=== PATIENT | male | born 1980 | race Caucasian/White ===

== ENCOUNTER 2017-07-09 10:55 | Outpatient (CLI) | payer BC ==
[2017-07-09 11:53] LABS: Mean Corpuscular HGB CONC 34.1 g/dL (32.0-36.0); Mean Platelet Volume 6.3 fL (7.4-10.4); Platelet Count 260 thou/uL (130-400); RBC Distribution Width 12.1 % (11.5-14.5); Red Blood Cell (RBC) Count 4.53 mill/uL (4.70-6.10); White Blood Cell (WBC) Count 5.7 thou/uL (4.8-10.8)
[2017-07-09 12:16] LABS: Anion Gap 11 mmol/L (10-20); BUN (Urea Nitrogen) 16 mg/dL (8.9-20.6); Calc. Creatinine Clearance 0 mL/min (70-130); Calcium 9.3 mg/dL (7.8-10.44); Carbon Dioxide 26 mmol/L (22-29); Estimated GFR-MDRD 84; Glucose 93 mg/dL (70-105); Potassium 4.2 mmol/L (3.5-5.1)
[2017-07-09 12:25] LABS: Chloride 104 mmol/L (98-107); Sodium 137 mmol/L (136-145)
== END 2017-07-09 10:56 | disposition home or self-care (01) ==
LOC: LABBT 10:55
PROVIDERS: ATTEND Orthopaedic Surgery Hand Surgery
DX: Z01.812 Encounter for preprocedural laboratory examination (principal); G56.22 Lesion of ulnar nerve, left upper limb
CPT/HCPCS: 80048; 85027

== ENCOUNTER 2017-07-10 05:50 | Day surgery (SDC) | payer BC ==
[2017-07-09 11:16] VITALS: BMI 38.9
[2017-07-10] MEDS ORDERED: CEFAZOLIN/Water 2 GM/20 ML SYRINGE ONE (06:13)
[2017-07-10] MEDS ORDERED: HYDROmorphone 0.5 MG/0.5 ML SYRINGE ONE (06:18)
[2017-07-10] MEDS ORDERED: Fentanyl 100 MCG/2 ML VIAL ONE ×2 (06:18→10:18)
[2017-07-10] MEDS ORDERED: Bacitracin Zinc Ointment 30 gm TUBE ONE (06:44)
[2017-07-10] MEDS ORDERED: Betamet Acet/Betamet Na Ph 30 MG/5 ML VIAL ONE (06:44)
[2017-07-10] MEDS ORDERED: Bupivacaine PF 0.5% 30 ML VIAL ONE (06:44)
[2017-07-10] MEDS ORDERED: Ketorolac Tromethamine 30 MG/ML VIAL ONE ×2 (10:26→16:54)
[2017-07-10] MEDS ORDERED: Promethazine HCl 25 MG/ML VIAL IM/IV PRN (11:01)
[2017-07-10] MEDS ORDERED: Non-Formulary Medication 1 EACH PO PRN (11:01)
[2017-07-10] MEDS ORDERED: Ondansetron HCl/PF 4 MG/2 ML Vial IVP PRN (11:01)
[2017-07-10] MEDS ORDERED: Dexamethasone 20 MG/5 ML VIAL ONE (16:54)
[2017-07-10] MEDS ORDERED: Lidocaine 1% PF 5 ML VIAL ONE (16:54)
[2017-07-10] MEDS ORDERED: ePHEDrine/0.9% NaCl/PF SYRINGE 50 mg/10 ml ONE ×2 (16:54)
[2017-07-10] MEDS ORDERED: Ondansetron HCl/PF 4 MG/2 ML Vial ONE (16:54)
[2017-07-10] MEDS ORDERED: Succinylcholine Chloride 20 MG/ML 10 ml SYRINGE FS ONE (16:54)
[2017-07-10] MEDS ORDERED: PROPOFOL 200 MG/20 ML VIAL ONE (16:54)
--- NOTE | 2017-07-14 11:41 | OP ---
DATE OF PROCEDURE: 07/10/2017 SURGEON: Luis Marsh M.D. ANESTHESIA: LMA technique, [place] Anesthesia, augmented by 30 mL 0.5% Marcaine block felicia-incision al. PROCEDURES PERFORMED: 1. Ulnar nerve neuroplasty. 2. Submuscular ulnar nerve transposition at the elbow. 3. Long arm splint application. 4. Celestone injection, perineural, intraoperative BLOOD LOSS: 10 Ml. TOURNIQUET TIME: 100 minutes. FINDINGS: 1. Very tight compression of the ulnar nerve in place flexor carpi. 2. Standard cubital tunnel. 3. Proximal to the ulnar nerve 2 cm proximal to the edge of the cubital tunnel. 4. Intermuscular parallel and cross over the nerve 10 cm proximal to the medial epicondyle. PROCEDURES PERFORMED: 1. Ulnar nerve neuroplasty under magnification, elbow, forearm, distal arm. 2. Cubital tunnel release. 3. Ulnar nerve submuscular transposition. 4. Celestone application. 5. Long arm splint application. SPECIMEN: None. INDICATIONS: The patient is a 150 kilogram, 1.80 meter tall male with a complaint of persistent smal l ring finger numbness and tingling, only minimal effect to conservative treatment. Positive EMGs an d already has interosseous weakness. Operative intervention indicated because of above. DESCRIPTION OF PROCEDURE: After successful general LMA technique, the limb was prepped and draped co mpletely, chest wall draped free, so we could reach entire access. Sterile tourniquet applied to inc lude a whole roll cast padding to protect the ulnar nerve proximally. We then exsanguinated the limb , placed incision zigzag which was midline and only slightly medial at the olecranon, but we smith d to curve it to follow the because just 5 cm proximal to his elbow, large total arm tattoo. A fter exsanguination of limb, tourniquet inflated to 250 mmHg pressure. We injected the incision area with 20 mL 0.5% Marcaine and then began our incision. Carried down to skin, subcutaneous tissue, an d a large flap was created from the midline ulnarly and in this were the cutaneous nerves. We then d issected the triceps most medial fascia until 10 cm proximal to the elbow. We just found the triceps and began the neuroplasty. Neuroplasty was completed first from this point distally to the cubital tunnel and then from the initial point proximally and we began to release first with the intermuscula r septum, placed portion where it went over the nerve and then at least a septum for the medial epico ndyle 10 cm proximal. We then found the area very tight where we could actually lift the arm, a band going across the nerve approximately 2.5 to 3 centimeters proximally into the cubital tunnel and the cubital tunnel fascia itself was very tight. We then carried the dissection through the tight dual heads of the flexors to a point where the nerve was completely free. We then began to separate the nerve, so it could be mobilized to include electrocautery of vessels, b ut we did maintain a very large slightly posterior vessel for the transposition. The intermuscular s eptum was free and we had completely spared the medial, antebrachial, and cutaneous nerves to visuali ze and protected it throughout the entire time of the procedure. We then released the fat from the area over the medial epicondyle, made a Z-plasty in the flexor pron ator origin and oversewn and then overlapped about 1 cm the most dorsal portion over the volar portio n and then before that placing the ulnar nerve transposed and without any tension into this bed. Melissa estone was placed here and then we closed this with a #6 interrupted [id number]-gn-xedrs #2 Ethibond and OS 4 needle. The tourniquet deflated. Hemostasis obtained. We then used the remaining portion of the injectable Marcaine on the incision, closed the incision in 2 layers running 3-0 Monocryl undyed and then 3-0 ny tosha interrupted mattress pattern horizontal on the epidermis. Bulky dressing applied and a splint at the elbow at 50 degrees of flexion or -30 degrees from 90, neutral position rotation. The patient l eft the operating room without evidence of anesthetic or operative complication.
== END 2017-07-10 12:05 | disposition home or self-care (01) ==
LOC: SDC 05:50
PROVIDERS: ATTEND Orthopaedic Surgery Hand Surgery
PROC: 01N40ZZ Release Ulnar Nerve, Open Approach (ICD-10-PCS; principal; 2017-07-10)
PROC: 3E0233Z Introduction of Anti-inflammatory into Muscle, Percutaneous Approach (ICD-10-PCS; principal; 2017-07-10)
DX: G56.22 Lesion of ulnar nerve, left upper limb; J30.2 Other seasonal allergic rhinitis; F41.9 Anxiety disorder, unspecified; F17.290 Nicotine dependence, other tobacco product, uncomplicated; Z79.899 Other long term (current) drug therapy
CPT/HCPCS: 96374; J0131; J0702; J1100; J1170; J1885; J2001; J2405; J2704; J3010; S0020

== ENCOUNTER 2018-07-30 09:25 | Outpatient (CLI) | payer BC ==
--- NOTE | 2018-07-30 13:17 | MRI ---
MR ARTHROGRAM RIGHT SHOULDER: DATE: 07/30/2018. PROVIDED CLINICAL HISTORY: Right shoulder pain. FINDINGS: The components of the rotator cuff appear intact. The long head biceps tendon appears intact and nor teresa located. There is nondisplaced SLAP tear noted. The glenoid labrum and glenohumeral articular cartilage appea r otherwise preserved. Os acromiale is noted. Mild acromioclavicular joint degenerative change. No significant subacromial subdeltoid bursal fluid. No focal concerning regional marrow or muscular signal abnormality evident . IMPRESSION: 1. Nondisplaced SLAP tear. 2. Os acromiale and acromioclavicular joint osteoarthrosis. POS: [facility]
--- NOTE | 2018-07-30 15:26 | RAD ---
RIGHT SHOULDER ARTHROGRAM: Date: 07/30/18 HISTORY: Right shoulder pain for 1 year. Arthritis right acromioclavicular joint. TECHNIQUE: The procedure, including risks and complications, were explained to the patient and informed consent was obtained. Right shoulder was placed in external rotation. An area overlying the lower 1/3 right g lenohumeral joint was marked and the area was meticulously prepped and draped in the usual sterile fa shion. Skin and subcutaneous tissues were infiltrated with buffered 1% lidocaine for local anesthesia . A 22 gauge spinal needle was advanced into the right glenohumeral joint. A small amount of contrast w as injected, demonstrating free flow of contrast from the tip of the needle. As a result, approximate ly 12 mL of a mixture consisting of Gadolinium, Isovue-300, lidocaine, small amount of epinephrine, a nd normal saline was instilled into the right glenohumeral joint. The needle was removed, and hemosta sis was achieved with direct pressure. A dry, sterile dressing was placed at puncture site. The patient tolerated the procedure well and without immediate complication. The patient was transpor sarahi to MRI for further imaging. IMPRESSION: 1. Technically successful right shoulder arthrogram. Please see MRI right shoulder for further detai ls. 2. Lens Silverer images of the right shoulder demonstrates no fracture, dislocation, or other osseous abnorm ality. POS: [facility]
== END 2018-07-30 09:26 | disposition home or self-care (01) ==
LOC: RAD 09:25
PROVIDERS: ATTEND Orthopaedic Surgery
DX: M19.011 Primary osteoarthritis, right shoulder (principal); M25.511 Pain in right shoulder; S43.431A Superior glenoid labrum lesion of right shoulder, initial encounter
CPT/HCPCS: 23350

== ENCOUNTER 2019-04-18 13:39 | Outpatient (CLI) | payer BC ==
--- NOTE | 2019-04-19 08:43 | MRI ---
MRI OF THE RIGHT CHEST WITH AND WITHOUT IV CONTRAST: INDICATION: Palpable mass of the right chest wall. CONTRAST: 20 cc of MultiHance. FINDINGS: A surface marker was placed over the palpable region of interest. Underlying the surface marker is a 3.8 x 1.8 cm T1 hyperintense fat signal intensity mass lesion involving the clavicular head of the p ectoralis muscles on the right, most consistent with an intramuscular lipoma. Postprocedural images demonstrate no suspicious internal enhancement. The surrounding musculature demonstrates a normal si gnal intensity and bulk. No enlarged lymph nodes are evident. 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 POS: [facility]
== END 2019-04-18 13:40 | disposition home or self-care (01) ==
LOC: TBSIIMAG 13:39
PROVIDERS: ATTEND Family Medicine
DX: R22.2 Localized swelling, mass and lump, trunk (principal); D17.9 Benign lipomatous neoplasm, unspecified
CPT/HCPCS: 71552